=== PATIENT | male | born 1965 | race Caucasian/White ===

== ENCOUNTER 2025-03-05 06:22 | Day surgery (SDC) | payer OTHER ==
[2025-03-01 10:10] VITALS: BMI 33.7
[2025-03-05] MEDS ORDERED: DEXAMETHASONE SOD PHOSPHATE 4 MG/1 ML VIAL ONE ×2 (07:06→09:25)
[2025-03-05] MEDS ORDERED: PROPOFOL 40 ML ONE (07:06)
[2025-03-05] MEDS ORDERED: ONDANSETRON 4 MG/2 ML VIAL ONE ×2 (07:06→09:25)
[2025-03-05] MEDS ORDERED: PROPOFOL 20 ML ONE ×3 (07:09→10:43)
[2025-03-05] MEDS ORDERED: TRANEXAMIC ACID 1000 MG/10 ML VIAL ONE ×2 (08:14→09:10)
[2025-03-05] MEDS ORDERED: VANCOMYCIN 1,000 MG VIAL (RESTRICTED TO ID ONLY) ONE ×2 (08:14→09:25)
[2025-03-05] MEDS ORDERED: BUPIVACAINE HCL/PF 0.5% (5MG/ML) 10 ML VIAL ONE (08:30)
[2025-03-05] MEDS ORDERED: BUPIVACAINE LIPOSOME/PF (EXPAREL) 266 MG/20 ML VIAL ONE (08:30)
[2025-03-05] MEDS ORDERED: MIDAZOLAM HCL 2 MG/2 ML SINGLE DOSE VIAL ONE (08:30)
[2025-03-05] MEDS ORDERED: ONDANSETRON 4 MG/2 ML VIAL IVPUSH PRN ×2 (08:42→11:20)
[2025-03-05] MEDS ORDERED: ROCURONIUM BROMIDE 50 MG/5 ML SYRINGE ONE ×2 (09:13→10:00)
[2025-03-05] MEDS ORDERED: ceFAZolin SODIUM 1 GM VIAL ONE (09:25)
[2025-03-05] MEDS ORDERED: SUGAMMADEX SODIUM 200 MG/2 ML VIAL ONE (10:25)
[2025-03-05] MEDS: TRANEXAMIC ACID 1000 MG/10 ML VIAL IVPB ONE (10:45)
[2025-03-05] MEDS: VANCOMYCIN 1,000 MG VIAL (RESTRICTED TO ID ONLY) IVPB ONE (10:52)
[2025-03-05] MEDS ORDERED: SUCCINYLCHOLINE CHLORIDE 200 MG/10 ML SYRINGE ONE (11:10)
[2025-03-05] MEDS ORDERED: MAG HYDROX/AL HYDROX/SIMETH 30 ML UNIT-DOSE CUP PO PRN (11:20)
[2025-03-05] MEDS: LACTATED RINGERS SOLUTION 1,000 ML IV SCH (17:59)
[2025-03-05] MEDS: CEFAZOLIN 2 GM/D5W 2 GRAM/50 ML ML IVPB SCH (18:00)
[2025-03-05] MEDS: SENNOSIDES/DOCUSATE COMBO (SENNA PLUS) TABLET (UD) PO SCH (21:37)
[2025-03-05] MEDS: VANCOMYCIN/WATER FOR INJ (PEG) 1 GM/200 ML BAG IVPB ONE (21:37)
[2025-03-06 07:46] LABS: HEMOGLOBIN 13.2 g/dL (13.7-17.5); MEAN CELL VOLUME 94.1 fl (79.0-92.2); MEAN PLT VOLUME 10.6 fl (9.4-12.4); PLATELET COUNT 285 x10^3/uL (163-337); RDW 13.1 % (12.2-16.4)
[2025-03-06 07:59] LABS: CALCIUM 8.6 mg/dl (8.5-10.1); CREATININE 0.8 mg/dl (0.6-1.3); POTASSIUM 4.2 mmol/L (3.5-5.1)
[2025-03-06] MEDS: PANTOPRAZOLE 40 MG TABLET PO SCH (09:31)
[2025-03-06] MEDS: ASPIRIN COATED 81 MG TABLET.EC PO SCH (09:31)
[2025-03-06] MEDS: LOSARTAN POTASSIUM 50 MG TABLET PO SCH (09:31)
[2025-03-06] MEDS: MULTIVITAMINS (DAILY MVI) TABLET (FP) PO SCH (09:32)
[2025-03-06] MEDS: ROSUVASTATIN CA 20 MG TABLET PO SCH (09:32)
[2025-03-06] MEDS ORDERED: BENZOCAINE/MENTH/CETYLPYRD CL 1 EACH LOZENGE MM PRN (12:30)
[2025-03-06 14:12] VITALS: BP 126/74; PULSE 85; RESP 18; TEMP 98.6
[2025-03-06] MEDS: oxyCODONE HCL 5 MG TABLET PO PRN (16:27)
== END 2025-03-06 16:35 | disposition home health service (06) ==
LOC: FASUSAT 06:22 → FM/S 12:56 → FASUSAT 03-06 16:35
PROVIDERS: ATTEND Orthopaedic Surgery
PROC: 0LS30ZZ Reposition Right Upper Arm Tendon, Open Approach (ICD-10-PCS; 2025-03-05)
PROC: 0RRJ0JZ Replacement of Right Shoulder Joint with Synthetic Substitute, Open Approach (ICD-10-PCS; principal; 2025-03-05 09:29)
DX: M19.011 Primary osteoarthritis, right shoulder (principal); M75.101 Unspecified rotator cuff tear or rupture of right shoulder, not specified as traumatic; M75.21 Bicipital tendinitis, right shoulder
CPT/HCPCS: 23430; 23472; C1776; 36415; 73030-TC-RT-FY; 80048; 85027; 88300-TC; 88305-TC; 88311-TC; 94760; 97010-GP; 97116-GP; 97162-GP; C1713; C1757; J0666